=== PATIENT | male | born 1960 | race Caucasian/White ===

== ENCOUNTER 2022-11-12 10:46 | Observation (INO) | payer OTHER ==
[~2022-11-12] VITALS: Ht 180.3 cm; Wt 100.3 kg
[2022-11-12] VITALS (30 sets, daily range): BP systolic 95–128; BP diastolic 57–96
[2022-11-12 12:40] LABS: BASOPHILS ABSOLUTE AUTO 0.03 K/mm3 (0.00-0.23); BASOPHILS PERCENT AUTO 0 % (0-2); EOSINOPHILS ABSOLUTE AUTO 0.01 K/mm3 (0.00-0.68); EOSINOPHILS PERCENT AUTO 0 % (0-6); Hematocrit 46.3 % (37.0-53.0); Hemoglobin 16.7 g/dL (13.5-17.5); IMMATURE GRAN ABSOLUTE AUTO 0.05 K/mm3 (0.00-0.10); IMMATURE GRAN PERCENT AUTO 0 % (0-1); LYMPHOCYTES ABSOLUTE AUTO 1.22 K/mm3 (0.84-5.20); LYMPHOCYTES PERCENT AUTO 9 % (21-46); MONOCYTES ABSOLUTE AUTO 1.43 K/mm3 (0.16-1.47); MONOCYTES PERCENT AUTO 10 % (4-13); Mean Corpuscular HGB 34.8 pg (26.0-34.0); Mean Corpuscular HGB Conc 36.1 g/dL (31.5-36.5); Mean Corpuscular Volume 97 fL (80-100); Mean Platelet Volume 11.3 fL (9.1-12.4); NEUTROPHILS ABSOLUTE AUTO 11.26 K/mm3 (1.96-9.15); NEUTROPHILS PERCENT AUTO 80 % (41-73); Platelet Count 186 K/mm3 (150-400); RDW Coefficient Variation 11.6 % (11.7-14.2); RDW Standard Deviation 41.4 fL (35.1-46.3)
[2022-11-12 13:12] LABS: Albumin, Blood 3.7 g/dL (3.4-5.0); Albumin/Globulin Ratio 0.9 (0.8-1.8); Bilirubin, Total 1.4 mg/dL (0.1-1.0); Bun/Creatinine Ratio 12.6 (12.0-20.0); Calcium, Blood 9.5 mg/dL (8.5-10.1); Creatinine, Blood 1.27 mg/dL (0.60-1.20); Total Protein, Blood 7.7 g/dL (6.4-8.2)
[2022-11-12 14:00] LABS: Anti-Xa UFH, PHA Monitoring <0.10 IU/mL; International Normalized Ratio 1.03; Prothrombin Time Results 10.8 Sec (9.7-11.5)
--- NOTE | 2022-11-12 17:09 | NUR ---
ACT CHECKED CURRENTLY 233 FROM RIGHT GROIN SHEATH.
--- NOTE | 2022-11-12 18:07 | NUR ---
PATIENT ACT PERFORMED AT THE BEDSIDE, RESULT WAS 191. BEGAND TAKING AIR FROM THE TR BAND, 11 ML IN THE BAND, REMOVED 3 ML OF AIR. SMALL SOFT AREA OF FLESH DISTAL TO THE TR BAND BUT WOULDN'T CONSIDER IT A HEAMTOMA. AT THE BEDSIDE. TEACHING DONE. ALL QUESTIONS ANSWERED. VVS. RIGHT GROIN WITH SHEATH IN PLACE. SITE CDI. NO BLEEDING, NO HEMATOMA NOTED.
--- NOTE | 2022-11-12 18:18 | NUR ---
TR BAND FLAT, NO BLEEDING NOTED, NO HEMATOMA NOTED.
--- NOTE | 2022-11-12 18:23 | NUR ---
GEORGE CALLED TO [facility] AND PATIENT TRANSFERRED TO ICU #3 VIA STRETCHER ON DEFIB WITH ALL BELONGINGS.
--- NOTE | 2022-11-12 18:26 | NUR ---
30 ML OF MAALOX GIVEN NOW FOR GAS. UNABLE TO DOCUMENT IN EMAR
--- NOTE | 2022-11-12 19:15 | NUR ---
ASSUMPTION OF CARE: RECEIVED REPORT FROM GAV[facility] HULL. ALERT AND ORIENTED TO PERSON, PLACE, TIME AND SITUATION. GROIN SHEATH IN PLACE AT CHANGE OF SHIFT. TR BAND IN PLACE WELL. PULLED GROIN SHEATH AT 2009. HELD MANUAL PRESSURE FOR 30 MINUTES WITH NO COMPLICATIONS. NO HEMATOMA, SWELLING OR PAIN PRESENT AT SITE. TR BAND REMOVED AT 0 WITH NO COMPLICATIONS, ARM BOARD IN PLACE AND TEGADERM OVER SITE. STRONG PULSES IN RADIAL AND PEDAL SITES. PT ON CONTINUOS CARDIAC MONITORING SR WITH HR IN THE 90'S. NO C/O CHEST PAIN, PRESSURE OR SOB. PT ABLE TO VOID USING THE URINAL WITH ASSISTANCE. TWO PERIPHERAL IV'S ONE IN EACH AC. BOTH SALINE LOCKED, WITH NO REDNESS OR PAIN PRESENT. SEE SHIFT ASSESSMENT FOR FULL ASSESSMENT.
--- NOTE | 2022-11-12 22:36 | NUR ---
UPDATE: CALL PLACED TO MANJINDER DAVIS REGARDING PTS IBS AND HEARTBURN LIKE SYMPTOMS. NEW ORDERS FOR PEPTO AND OMEPRAZOLE. SEE MAR FOR DOSE AND TIME.
[2022-11-13] VITALS (34 sets, daily range): BP systolic 95–126; BP diastolic 63–93
--- NOTE | 2022-11-13 01:31 | NUR ---
UPDATE PT USED CALL LIGHT TO NOTIFY RN THAT HE WAS STARTING TO HAVE SOME CHEST "DISCOMFORT"; PT NOW MORE DIAPHORETIC ALSO. VITALS STABLE. PRN EKG DONE. AFTER 15 MINUTES, PT STATED THAT THE DISCOMFORT WAS SUBSIDING AND NOW HE IS JUST HAVING INDIGESTION LIKE BEFORE.
[2022-11-13 03:38] LABS: BASOPHILS ABSOLUTE AUTO 0.03 K/mm3 (0.00-0.23); BASOPHILS PERCENT AUTO 0 % (0-2); EOSINOPHILS ABSOLUTE AUTO 0.01 K/mm3 (0.00-0.68); EOSINOPHILS PERCENT AUTO 0 % (0-6); Hematocrit 40.4 % (37.0-53.0); Hemoglobin 14.6 g/dL (13.5-17.5); IMMATURE GRAN ABSOLUTE AUTO 0.03 K/mm3 (0.00-0.10); IMMATURE GRAN PERCENT AUTO 0 % (0-1); LYMPHOCYTES ABSOLUTE AUTO 1.38 K/mm3 (0.84-5.20); LYMPHOCYTES PERCENT AUTO 12 % (21-46); MONOCYTES ABSOLUTE AUTO 1.34 K/mm3 (0.16-1.47); MONOCYTES PERCENT AUTO 12 % (4-13); Mean Corpuscular HGB Conc 36.1 g/dL (31.5-36.5); Mean Corpuscular Volume 97 fL (80-100); Mean Platelet Volume 10.6 fL (9.1-12.4); NEUTROPHILS ABSOLUTE AUTO 8.47 K/mm3 (1.96-9.15); NEUTROPHILS PERCENT AUTO 75 % (41-73); Platelet Count 163 K/mm3 (150-400); RDW Coefficient Variation 11.8 % (11.7-14.2); RDW Standard Deviation 41.7 fL (35.1-46.3); Red Blood Cell Count 4.17 M/mm3 (4.30-5.90); White Blood Cell Count 11.26 K/mm3 (4.00-11.30)
[2022-11-13 03:57] LABS: Alanine Aminotransfer (ALT/SGP 49 U/L (12-78); Albumin, Blood 2.9 g/dL (3.4-5.0); Albumin/Globulin Ratio 0.8 (0.8-1.8); Alk Phos 66 U/L (50-136); Anion Gap 7 mmol/L (6-16); Aspartate Aminotrans (AST/SGOT 98 U/L (12-37); Bilirubin, Total 1.2 mg/dL (0.1-1.0); Blood Urea Nitrogen 15 mg/dL (8-24); Bun/Creatinine Ratio 12.7 (12.0-20.0); CHOL/HDL RATIO 3.1; CO2, Blood 24 mmol/L (21-32); Calcium, Blood 8.6 mg/dL (8.5-10.1); Chloride, Blood 107 mmol/L (98-108); Cholesterol 148 mg/dL (50-200); Creatinine, Blood 1.18 mg/dL (0.60-1.20); Globulin, Blood 3.6 g/dL (2.2-4.0); Glomerular Filtration Rate 70 (60-); Glucose, Blood 101 mg/dL (70-99); HDL Cholesterol 48 mg/dL (>39); LDL/HDL RATIO 1.6; Low Density Lipoprotein Chol 75 mg/dL (0-110); Potassium, Blood 4.1 mmol/L (3.5-5.5); Sodium, Blood 138 mmol/L (136-145); Total Protein, Blood 6.5 g/dL (6.4-8.2); Triglycerides 126 mg/dL (30-160); Very Low Density Lipoprot Chol 25 mg/dL (6-32)
--- NOTE | 2022-11-13 06:20 | NUR ---
SHIFT SUMMARY: NO NEW EVENTS SINCE PREVIOUS NOTE. NO NEW CHEST PAIN OR PRESSURE. PT HAD TROUBLE SLEEPING T/O THE NIGHT R/T HAVING TO PEE AND NOT GETTING FLUIDS. PT MADE NPO AT MIDNIGHT FOR ULTRASOUND THIS AM. REMAINED ALERT AND ORIENTED TO PERSON,PLACE, SITUATION AND TIME. SBP 90'S HRR IN THE 90'S T/O THE NIGHT. GROIN SITE ASSESSED EVERY HOUR T/O THE NIGHT WITH NO SIGNS OF HEMATOMA, PAIN OR SWELLING. RADIAL SITE REMAINS FREE OF HEMATOMA, SWELLING AND PAIN WITH ARMBOARD STILL IN PLACE. PLAN FOR ECHO THIS AM. ABLE TO VOID USING THE URINAL INDEPENDENTLY. NO BM T/O THE SHIFT. BILATERAL AC IV'S CONTINUE TO REMAIN SALINE LOCKED WITH NO IRRITATION, REDNESS OR PAIN. WILL REPORT OFF TO DAYSHIFT RN.
--- NOTE | 2022-11-13 07:32 | NUR ---
Upon receiving a referral for spiritual care, I visited the patient. 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 He shares about his family, his holiness ([employer]) and his career as a [employer]ne[employer]. I celebrate with patient the wonderful outcome of this event and provide therapeutic listening and prayer. Patient responded well and displayed evidence of an elevated mood.
--- NOTE | 2022-11-13 07:52 | NUR ---
BEDSIDE REPORT COMPLETED, RIGHT GROIN SITE C/D/I WITH GAUZE OVER THE TOP, NO HEMATOMA, NO BLEEDING. RIGHT WRIST SITE IS C/D/I, SMALL SCAB ADJACENT TO IN- SERTION SITE. PT STANDS TO VOID BETWEEN PROCEDURES (U/S AND ECHO) FEELS MUCH BETTER AFTER VOIDING. STEADY AND NO PAIN.
--- NOTE | 2022-11-13 11:17 | NUR ---
IN TO SEE PATIENT, INSTRUCTIONS GIVEN AND PT IS CLEARED FROM CARDIAC STANDPOINT TO BE DISCHARGED, CALL TO WITH THE UPDATE. WILL AWAIT FURTHER ORDERS. GROIN SITE REMAINS C/D/I.
[2022-11-13] MEDS ORDERED: ATOR40TA PO (14:01)
[2022-11-13] MEDS ORDERED: ASPI81CH PO (14:01)
[2022-11-13] MEDS ORDERED: METO25ER PO (14:02)
[2022-11-13] MEDS ORDERED: OMEP20ER PO (14:02)
[2022-11-13] MEDS ORDERED: TICA90TA PO (14:03)
--- NOTE | 2022-11-13 15:26 | NUR ---
late entry: Pt was ready for discharge, discharge orders received from . Instructions given to patient, explaining and answering any questions. All belongings returned to him, son here to drive him home. Pt wheeled out by CPT Dunia.
== END 2022-11-13 15:00 | disposition home or self-care (01) ==
LOC: ER 10:46 → ICUE 10:47 → PCU 10:47 → ICUE 16:25
PROVIDERS: Emergency Medicine; Family Medicine; ADMIT Internal Medicine
DX: I21.4 Non-ST elevation (NSTEMI) myocardial infarction (principal); N17.9 Acute kidney failure, unspecified; E78.5 Hyperlipidemia, unspecified; M17.0 Bilateral primary osteoarthritis of knee; K21.9 Gastro-esophageal reflux disease without esophagitis; E66.9 Obesity, unspecified; I25.10 Atherosclerotic heart disease of native coronary artery without angina pectoris; Z86.16 Personal history of COVID-19
CPT/HCPCS: 36415; 76705; 76937; 80053; 80061; 83036; 83690; 84484; 85025; 85347; 85520; 85610; 85730; 92978; 93005; 93010; 93306; 93458; 96374; 99152; 99153; 99285-25; A9270; C1725; C1753; C1769; C1874; C1887; C1894; C8929; C9600; G0378; J1644; J2250; J2371; J3010; J7030; J7040; J7050; Q9957; Q9967

== ENCOUNTER 2023-07-16 09:34 | Emergency (ER) | payer OTHER ==
[~2023-07-16] VITALS: Ht 177.8 cm; Wt 95.2 kg
[~2023-07-16 09:34] MED LIST: ASPI81CH PO; ATOR40TA PO; METO25ER PO; OMEP20ER PO; TICA90TA PO
[2023-07-16] MEDS ORDERED: NS 1,000 ML IV SCH (10:10)
[2023-07-16 10:12] LABS: BASOPHILS ABSOLUTE AUTO 0.01 K/mm3 (0.00-0.23); BASOPHILS PERCENT AUTO 0 % (0-2); EOSINOPHILS ABSOLUTE AUTO 0.03 K/mm3 (0.00-0.68); EOSINOPHILS PERCENT AUTO 0 % (0-6); Hematocrit 42.9 % (37.0-53.0); Hemoglobin 15.3 g/dL (13.5-17.5); IMMATURE GRAN ABSOLUTE AUTO 0.02 K/mm3 (0.00-0.10); IMMATURE GRAN PERCENT AUTO 0 % (0-1); LYMPHOCYTES ABSOLUTE AUTO 1.17 K/mm3 (0.84-5.20); LYMPHOCYTES PERCENT AUTO 18 % (21-46); MONOCYTES ABSOLUTE AUTO 0.39 K/mm3 (0.16-1.47); MONOCYTES PERCENT AUTO 6 % (4-13); Mean Corpuscular HGB 34.9 pg (26.0-34.0); Mean Corpuscular HGB Conc 35.7 g/dL (31.5-36.5); Mean Corpuscular Volume 98 fL (80-100); Mean Platelet Volume 10.1 fL (9.1-12.4); NEUTROPHILS ABSOLUTE AUTO 5.08 K/mm3 (1.96-9.15); NEUTROPHILS PERCENT AUTO 76 % (41-73); Platelet Count 152 K/mm3 (150-400); RDW Coefficient Variation 11.3 % (11.7-14.2); RDW Standard Deviation 40.8 fL (35.1-46.3); Red Blood Cell Count 4.38 M/mm3 (4.30-5.90)
[2023-07-16 10:25] LABS: Bun/Creatinine Ratio 9.5 (12.0-20.0); Creatinine, Blood 1.16 mg/dL (0.60-1.20); Magnesium, Blood 1.7 mg/dL (1.6-2.4); Potassium, Blood 3.9 mmol/L (3.5-5.5)
[2023-07-16] MEDS ORDERED: ISOSORBIDE MONO30 MG PO (10:48)
[2023-07-16] MEDS ORDERED: PANTOPRAZOLE SO40 M2 PO (10:48)
[2023-07-16] MEDS ORDERED: METOPROLOL SUCCINATE (10:49)
[2023-07-16 12:30] VITALS: BP 118/78
[2023-07-16] MEDS ORDERED: HYDROmorphone HCl/Pf 1MG SYR IV ONE (13:05)
== END 2023-07-16 13:10 | disposition home or self-care (01) ==
LOC: ER 09:34
PROVIDERS: Student in an Organized Health Care Education/Training Program
DX: R55 Syncope and collapse (principal); E86.0 Dehydration; Z79.899 Other long term (current) drug therapy; Z79.82 Long term (current) use of aspirin
CPT/HCPCS: 80048; 83735; 84484; 85025; 93005; 93010; 96360; 99284-25; J7030

== ENCOUNTER 2023-12-28 06:05 | Day surgery (SDC) | payer OTHER ==
[2023-12-28] VITALS (13 sets, daily range): BP systolic 107–125; BP diastolic 67–83
[~2023-12-28] VITALS: Ht 180.3 cm; Wt 98.6 kg
[~2023-12-28 06:05] MED LIST changes: +ALBU90OI INH; +IPRATROPIUM BRO30 ML; +ISOSORBIDE MONO30 MG PO; +METOPROLOL SUCCINATE; +PANTOPRAZOLE SO40 M2 PO
[2023-12-28] MEDS ORDERED: Chlorhexidine Mouth Care 15 ML UDC MT SCH (07:35)
[2023-12-28] MEDS ORDERED: Acetaminophen 500 MG Tab PO SCH ×2 (07:35→16:00)
[2023-12-28] MEDS ORDERED: CeFAZolin Sodium 2,000 MG in NS 100 ML IV SCH ×2 (07:35→17:30)
[2023-12-28] MEDS ORDERED: Ropivacaine 0.5% HCl/Pf 123.125 MG,EPINEPHrine HCL 0.25 MG,Ketorolac Tromethamine 15 MG... INFIL SCH (07:35)
[2023-12-28] MEDS ORDERED: Lactated Ringer's 1,000 ML IV SCH ×2 (07:35→09:40)
[2023-12-28] MEDS ORDERED: OxyCODONE HCL 10 MG TABCR PO SCH (07:35)
[2023-12-28] MEDS ORDERED: Tranexamic Acid 100 ML IV SCH (07:38)
[2023-12-28] MEDS ORDERED: propofoL 60 ML IV ONE (08:29)
[2023-12-28] MEDS ORDERED: Midazolam HCl 1MG / ML 2ML Vial ONE (08:34)
--- NOTE | 2023-12-28 09:02 | NUR ---
History, Chart, Medications and Allergies reviewed before start of procedure. Pre-Op teaching done. Pt verbalizes understanding. Patient confirms NPO status and agrees with scheduled surgery. PT BELONGINGS PLACED IN BAG UNDER BED. PT GLASSES PUT IN SMALL ZIP LOCK AND PLACED IN PACU.
[2023-12-28] MEDS ORDERED: Magnesium Hydroxide Conc 10 ML UDC PO PRN (09:40)
[2023-12-28] MEDS ORDERED: OxyCODONE HCL 5 MG TAB PO PRN ×2 (09:40)
[2023-12-28] MEDS ORDERED: Metoclopramide HCl 5MG / ML 2ML Vial IV PRN (09:40)
[2023-12-28] MEDS ORDERED: Promethazine HCl 25 MG Tab PO PRN (09:40)
[2023-12-28] MEDS ORDERED: Ondansetron HCl 2 MG / ML 2ML Vial IV PRN (09:45)
[2023-12-28] MEDS ORDERED: HYDROmorphone HCl/Pf 1MG SYR IV PRN (09:45)
[2023-12-28] MEDS ORDERED: FLU VACC TS2024-25(6MOS UP)/PF 45 MCG/0.5 ML SYRINGE IM SCH (09:45)
[2023-12-28] MEDS ORDERED: DiphenhydrAMINE HCL 25 MG Cap PO PRN (09:50)
[2023-12-28] MEDS ORDERED: Bisacodyl 10 MG Supp PR PRN (09:50)
[2023-12-28] MEDS ORDERED: ePHEDrine Sulfate 50 MG/ML 1ML Injection ONE (09:55)
[2023-12-28] MEDS ORDERED: Albuterol HFA200 ACT/6.7 GM INH INH PRN (09:55)
--- NOTE | 2023-12-28 11:46 | NUR ---
ARRIVAL TO SURGICAL UNIT VIA HOSPITAL BED, ASSESSMENT CHARTED. ALERT & PLEASANT. DENIES N/V; SNACKS & DRINKS GIVEN.
[2023-12-28] MEDS ORDERED: Ketorolac Tromethamine 15mg Vial IV SCH (12:00)
--- NOTE | 2023-12-28 19:16 | NUR ---
SHIFT SUMMARY HAS DONE WELL POST OP. AFTER SPINAL WORE OFF WAS ABLE TO WORK w/ THERAPY. PAIN WELL CONTROLLED. EATING, DRINKING, & VOIDING. PLEASANT & COOPERATIVE.
[2023-12-28] MEDS ORDERED: Ipratropium Bromide 0.03% Nasal Spray SCH (21:00)
[2023-12-28] MEDS ORDERED: Docusate Sodium 100 MG Cap PO SCH (21:00)
[2023-12-29 04:50] VITALS: BP 114/74
[2023-12-29 05:08] LABS: BASOPHILS ABSOLUTE AUTO 0.03 K/mm3 (0.00-0.23); BASOPHILS PERCENT AUTO 0 % (0-2); EOSINOPHILS ABSOLUTE AUTO 0.13 K/mm3 (0.00-0.68); EOSINOPHILS PERCENT AUTO 2 % (0-6); Hematocrit 37.1 % (37.0-53.0); IMMATURE GRAN ABSOLUTE AUTO 0.01 K/mm3 (0.00-0.10); IMMATURE GRAN PERCENT AUTO 0 % (0-1); LYMPHOCYTES ABSOLUTE AUTO 2.19 K/mm3 (0.84-5.20); LYMPHOCYTES PERCENT AUTO 32 % (21-46); MONOCYTES ABSOLUTE AUTO 0.54 K/mm3 (0.16-1.47); MONOCYTES PERCENT AUTO 8 % (4-13); Mean Corpuscular HGB 34.7 pg (26.0-34.0); Mean Corpuscular Volume 99 fL (80-100); Mean Platelet Volume 10.7 fL (9.1-12.4); NEUTROPHILS ABSOLUTE AUTO 4.04 K/mm3 (1.96-9.15); NEUTROPHILS PERCENT AUTO 58 % (41-73); Platelet Count 149 K/mm3 (150-400); RDW Coefficient Variation 11.9 % (11.7-14.2); RDW Standard Deviation 42.8 fL (35.1-46.3); Red Blood Cell Count 3.75 M/mm3 (4.30-5.90); White Blood Cell Count 6.94 K/mm3 (4.00-11.30)
--- NOTE | 2023-12-29 05:20 | NUR ---
SHIFT SUMMARY POD 1 R TKA. NO ACUTE CHANGES OVERNIGHT. VSS. TOLERATING ORALS. AMBULATES USING FWW c GB & SBA. AQUACEL x2 C/D/I c LOWER AQUACEL HAVING SCANT SANG DRAINAGE. VOIDING. PT REPORTS PAIN TOLERABLE, MEDICATED PER EMAR. ANTICIPATED D/C LATER TODAY. PT DRESSED, RESTING IN CHAIR c POLAR PACK IN USE, CALL LIGHT IN REACH. WILL REPORT TO DAY RN.
[2023-12-29 05:59] LABS: Calcium, Blood 8.4 mg/dL (8.5-10.1); Creatinine, Blood 1.33 mg/dL (0.60-1.20); Magnesium, Blood 1.9 mg/dL (1.6-2.4); Potassium, Blood 4.2 mmol/L (3.5-5.5)
[2023-12-29 07:21] VITALS: BP 100/82
[2023-12-29] MEDS ORDERED: Metoprolol Succinate 25 MG TABCR PO SCH (09:00)
[2023-12-29] MEDS ORDERED: Pantoprazole Sodium 40 MG Tab PO SCH (09:00)
[2023-12-29] MEDS ORDERED: Aspirin 81 MG Chew PO SCH (09:00)
[2023-12-29] MEDS ORDERED: ACET500 PO (09:06)
[2023-12-29] MEDS ORDERED: OXYC5 PO (09:07)
[2023-12-29] MEDS ORDERED: XARELTO10 M5 PO (09:07)
--- NOTE | 2023-12-29 10:45 | NUR ---
DISCHARGE PT HAS CLEARED THERAPY. PAIN WELL CONTROLLED. EATING, DRINKING, & VOIDING WELL. TIM & CHRISSY PACK SENT w/ PT. ESCORTED OUT VIA W/C.
[2023-12-29] MEDS ORDERED: Rivaroxaban 10 MG Tab PO SCH (12:00)
== END 2023-12-29 10:46 | disposition home or self-care (01) ==
LOC: ORSCMMR 06:05 → ORD 07:30 → ORSCMMR 07:30 → ORD 10:25 → ORSCMMR 10:25 → SURS 11:36 → ORSCMMR 12-29 10:46
PROVIDERS: Orthopaedic Surgery
PROC: 8E0Y0CZ Robotic Assisted Procedure of Lower Extremity, Open Approach (ICD-10-PCS; principal; 2023-12-29)
PROC: 0SRC0JA Replacement of Right Knee Joint with Synthetic Substitute, Uncemented, Open Approach (ICD-10-PCS; principal; 2023-12-29)
DX: M17.11 Unilateral primary osteoarthritis, right knee (principal); I10 Essential (primary) hypertension; I25.2 Old myocardial infarction; I25.10 Atherosclerotic heart disease of native coronary artery without angina pectoris; G47.33 Obstructive sleep apnea (adult) (pediatric); Z79.899 Other long term (current) drug therapy; Z79.82 Long term (current) use of aspirin
CPT/HCPCS: 27447; 0055T; 36415; 73560-RT; 80048; 83735; 85025; 97110; 97116; 97162; A9270; C1713; C1776; J0171; J0690; J0735; J1170; J1171; J1885; J2250; J2704; J2765; J2795; J7120